=== PATIENT | female | born 2000 | race Caucasian/White ===

== ENCOUNTER 2021-08-09 19:42 | Emergency (ER) | payer OTHER ==
[~2021-08-09] VITALS: Ht 165.1 cm; Wt 68.0 kg
[2021-08-09 19:42] VITALS: BP_SYST 110
[2021-08-09] MEDS ORDERED: fentaNYL CITRATE/PF 100 MCG/2 ML AMP IM ONE (20:45)
[2021-08-09] MEDS ORDERED: IBUP-1969 PO (21:32)
[2021-08-09 22:18] VITALS: BP_SYST 110
== END 2021-08-09 22:19 | disposition home or self-care (01) ==
LOC: SED 19:42
DX: S83.011A Lateral subluxation of right patella, initial encounter (principal); W18.39XA Other fall on same level, initial encounter; Y93.89 Activity, other specified; Y92.89 Other specified places as the place of occurrence of the external cause; Y99.8 Other external cause status
CPT/HCPCS: 27560; 73560; 73564; 99284; J3010